=== PATIENT | female | born 1970 | race Caucasian/White ===

== ENCOUNTER 2017-06-26 11:02 | Emergency (ER) ==
[2017-06-26 11:10] VITALS: BP 143/88; TEMP 97.7; BMI 24.0
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
--- NOTE | 2017-06-26 12:06 | DI ---
EXAM: Three views of the right shoulder HISTORY: Injury TECHNIQUE: Internal and external rotation frontal views of the right shoulder and A axillary Y view of the right shoulder were obtained. FINDINGS: The humeral head appears to be normal position. No acute fractures are seen. The soft t issues are normal. IMPRESSION: No acute fracture dislocation seen within the right shoulder.
--- NOTE | 2017-06-26 12:07 | DI ---
EXAM: Three views of the right elbow HISTORY: Injury TECHNIQUE: AP, lateral and oblique views of the right elbow were obtained. FINDINGS: No acute fractures are seen. There is anatomic alignment. The soft tissues are normal. IMPRESSION: No acute fracture dislocation seen within the right elbow.
[2017-06-26] MEDS: FLEXERIL PO STA (12:16)
== END 2017-06-26 12:05 | disposition home or self-care (01) ==
LOC: ED 11:02
DX: M25.511 Pain in right shoulder (principal); M79.601 Pain in right arm; W20.8XXA Other cause of strike by thrown, projected or falling object, initial encounter; Y92.512 Supermarket, store or market as the place of occurrence of the external cause
CPT/HCPCS: 99283